=== PATIENT | male | born 1975 | race Two or more races ===

== ENCOUNTER 2018-04-23 02:07 | Emergency (ER) | payer BC, OTHER ==
[~2018-04-23] VITALS: Ht 172.7 cm; Wt 87.5 kg
[~2018-04-23 02:07] MED LIST: ANAS1TAB PO; FEXO60TA25 PO; HYDR-2758 PO; LEVO750T31 PO; LISI-338 PO; METF500T16 PO; OMEG300C PO; PANT40TA3 PO; SIMV5TAB5 PO; SUCR1TAB PO; TEST200V3 IM; TEST5GEL TP; lisinopril; metformin
[2018-04-23 02:47] LABS: BASO % 0 % (0-3); EOS # 0.1 x10^3/uL (0.0-0.7); EOS % 1 % (0-3); HEMOGLOBIN 16.4 g/dL (13.0-17.5); LYMPH # 2.4 x10^3/uL (1.0-4.8); LYMPH % 21 % (24-48); MEAN CORPUSCULAR HEMOGLOBIN 27 pg (25-35); MEAN CORPUSCULAR HGB CONC 33 g/dL (31-37); MEAN CORPUSCULAR VOLUME 83 fL (79-100); MONO # 0.8 x10^3/uL (0.0-1.1); MONO % 7 % (0-9); NEUT # 7.8 x10^3uL (1.8-7.7); NEUT % 70 % (31-73); PLATELET COUNT 306 x10^3/uL (140-400); RED BLOOD COUNT 5.99 x10^6/uL (4.30-5.70); RED CELL DISTRIBUTION WIDTH 14.6 % (11.5-14.5); WHITE BLOOD COUNT 11.2 x10^3/uL (4.0-11.0)
[2018-04-23 03:02] LABS: ALBUMIN 3.9 g/dL (3.4-5.0); ALBUMIN/GLOBULIN RATIO 1.1 (1.0-1.7); CREATININE 1.2 mg/dL (0.7-1.3); GFR 66.4; MAGNESIUM 1.9 mg/dL (1.8-2.4); POTASSIUM 3.9 mmol/L (3.5-5.1); TOTAL BILIRUBIN 0.4 mg/dL (0.2-1.0); TOTAL PROTEIN 7.6 g/dL (6.4-8.2)
[2018-04-23] MEDS: IOHEXOL 300 MG/ML 75 ML VIAL. IV ONE (03:22)
[2018-04-23] MEDS ORDERED: CONTRAST GIVEN MC PRN (03:30)
[2018-04-23 03:46] VITALS: BP 146/81
--- NOTE | 2018-04-23 03:59 | RAD ---
INDICATION: Omni 300 75cc: PE protocol: Chest pain, short of air, elevated d-dimer, left achilles tendon repair 04/19/18 COMPARISON: Chest x-ray August 03, 2015 TECHNIQUE: Axial CT images obtained through the chest. Intravenous contrast utilized. Angiogram 3D images processed per protocol. One or more of the following individualized dose reduction techniques were utilized for this examination: 1. Automated exposure control; 2. Adjustment of the mA and/or kV according to patient size; 3. Use of iterative reconstruction technique. FINDINGS: No evidence of pneumothorax. Hypoexpansion of the lungs with mild groundglass opacities. Linear opacity bilateral lung could be from atelectasis. Small right pleural effusion. Partially visualized liver is low-attenuation. Could be from phase of contrast or fatty infiltration. The pretracheal region on the right there is a 34 x 16 mm oval structure seen. Portions of ascending thoracic aorta obscured by motion but no aneurysm is seen in visualized portions. Fluid in pericardial recess. No embolus in main, right main or left main pulmonary artery. IMPRESSION: No embolus in the central pulmonary arteries but limited peripherally secondary to motion. Hypoexpanded lungs with mild groundglass opacities. Could be from hypoventilatory changes but mild edema or airway inflammation is possible given this finding. Trace right greater than left pleural effusion. Within the mediastinum there is some oval-shaped low-density structure seen including within the pretracheal region. This could be either some loculated fluid within the area or a low density enlarged lymph node. Follow-up could be obtained in a few months to ensure no increase in this finding. Electronically signed by: Ion Barfield MD (04/23/2018 3:56 AM) [facility] [place]
[2018-04-23] MEDS ORDERED: AZIT250T PO (04:14)
--- NOTE | 2018-04-23 04:15 | PHYS DOC ---
Past History Past Medical History: GERD, High Cholesterol, Hypertension, Other Past Surgical History: Other Alcohol Use: Rarely Drug Use: None Adult General Chief Complaint Chief Complaint: CHEST PAIN HPI HPI Patient is a 42-year-old male who presents with complaint of mild chest discomfort he describes as pressure as well as some shortness of breath that started yesterday. Patient states that this evening symptoms have gotten a little bit worse and due to having surgery on his left Achilles tendon, he was concerned about the possibility of a blood clot. Patient does indicate that he takes an adult aspirin that he started yesterday. He also indicates that he has had a bit of a cough but has been nonproductive. He denies any fever. Patient states his symptoms are present even at rest. Review of Systems Review of Systems Constitutional: Denies fever or chills [] Respiratory: Complains of cough and shortness of breath [] Cardiovascular: Complains of chest pressure [] GI: Denies abdominal pain, nausea, vomiting or diarrhea [] Musculoskeletal: Denies back pain [] All other systems were reviewed and found to be within normal limits, except as documented in this note. Current Medications Current Medications Current Medications Medications (Trade) Dose Ordered Sig/Rosa Start Time Stop Time Status Last Admin Dose Admin Info (Do NOT chart on this entry -- for MONITORING) 1 each PRN DAILY PRN 04/23/18 03:30 04/25/18 03:29 Iohexol (Omnipaque 300 Mg/ml) 75 ml 1X ONCE 04/23/18 03:30 04/23/18 03:31 DC 04/23/18 03:22 75 ML Allergies Allergies Allergies Coded Allergies Type Severity Reaction Last Updated Verified No Known Drug Allergies 07/18/14 No Physical Exam Physical Exam Constitutional: Well developed, well nourished, no acute distress, non-toxic appearance. [] HENT: Normocephalic, atraumatic, bilateral external ears normal, oropharynx moist, no oral exudates, nose normal. [] Eyes: PERRLA, EOMI, conjunctiva normal, no discharge. [] Neck: Normal range of motion, no tenderness, supple, no stridor. [] Cardiovascular:Heart rate regular rhythm [] Lungs & Thorax: Bilateral breath sounds clear to auscultation [] Abdomen: Bowel sounds normal, soft. [] Skin: Warm, dry, no erythema, no rash. [] Extremities: No tenderness, no cyanosis, no clubbing, ROM intact. [] Neurologic: Alert and oriented X 3, normal motor function, normal sensory function, no focal deficits noted. [] Current Patient Data Vital Signs Vital Signs Date Time Temp Pulse Resp B/P (MAP) Pulse Ox O2 Delivery O2 Flow Rate FiO2 04/23/18 03:16 67 19 134/82 (99) 92 Room Air 04/23/18 02:13 98.6 Lab Results Laboratory Tests Test 04/23/18 02:20 White Blood Count 11.2 x10^3/uL (4.0-11.0) H Red Blood Count 5.99 x10^6/uL (4.30-5.70) H Hemoglobin 16.4 g/dL (13.0-17.5) Hematocrit 50.0 % (39.0-53.0) Mean Corpuscular Volume 83 fL (79-100) Mean Corpuscular Hemoglobin 27 pg (25-35) Mean Corpuscular Hemoglobin Concent 33 g/dL (31-37) Red Cell Distribution Width 14.6 % (11.5-14.5) H Platelet Count 306 x10^3/uL (140-400) Neutrophils (%) (Auto) 70 % (31-73) Lymphocytes (%) (Auto) 21 % (24-48) L Monocytes (%) (Auto) 7 % (0-9) Eosinophils (%) (Auto) 1 % (0-3) Basophils (%) (Auto) 0 % (0-3) Neutrophils # (Auto) 7.8 x10^3uL (1.8-7.7) H Lymphocytes # (Auto) 2.4 x10^3/uL (1.0-4.8) Monocytes # (Auto) 0.8 x10^3/uL (0.0-1.1) Eosinophils # (Auto) 0.1 x10^3/uL (0.0-0.7) Basophils # (Auto) 0.0 x10^3/uL (0.0-0.2) D-Dimer (Sima) 0.52 mg/L (0.00-0.50) H Sodium Level 137 mmol/L (136-145) Potassium Level 3.9 mmol/L (3.5-5.1) Chloride Level 98 mmol/L (98-107) Carbon Dioxide Level 30 mmol/L (21-32) Anion Gap 9 (6-14) Blood Urea Nitrogen 12 mg/dL (8-26) Creatinine 1.2 mg/dL (0.7-1.3) Estimated GFR (Cockcroft-Gault) 66.4 BUN/Creatinine Ratio 10 (6-20) Glucose Level 100 mg/dL (70-99) H Calcium Level 9.0 mg/dL (8.5-10.1) Magnesium Level 1.9 mg/dL (1.8-2.4) Total Bilirubin 0.4 mg/dL (0.2-1.0) Aspartate Amino Transferase (AST) 24 U/L (15-37) Alanine Aminotransferase (ALT) 35 U/L (16-63) Alkaline Phosphatase 109 U/L (46-116) Troponin I Quantitative < 0.017 ng/mL (0-0.055) AM-Lgd-J-Type Natriuretic Peptide 46 pg/mL (0-124) Total Protein 7.6 g/dL (6.4-8.2) Albumin 3.9 g/dL (3.4-5.0) Albumin/Globulin Ratio 1.1 (1.0-1.7) EKG EKG EKG demonstrates normal sinus rhythm with rate of 75.[] Radiology/Procedures Radiology/Procedures [] Impressions: PROCEDURE: CT ANGIOGRAPHY CHEST INDICATION: Omni 300 75cc: PE protocol: Chest pain, short of air, elevated d-dimer, left achilles tendon repair 04/19/18 COMPARISON: Chest x-ray August 03, 2015 TECHNIQUE: Axial CT images obtained through the chest. Intravenous contrast utilized. Angiogram 3D images processed per protocol. One or more of the following individualized dose reduction techniques were utilized for this examination: 1. Automated exposure control; 2. Adjustment of the mA and/or kV according to patient size; 3. Use of iterative reconstruction technique. FINDINGS: No evidence of pneumothorax. Hypoexpansion of the lungs with mild groundglass opacities. Linear opacity bilateral lung could be from atelectasis. Small right pleural effusion. Partially visualized liver is low-attenuation. Could be from phase of contrast or fatty infiltration. The pretracheal region on the right there is a 34 x 16 mm oval structure seen. Portions of ascending thoracic aorta obscured by motion but no aneurysm is seen in visualized portions. Fluid in pericardial recess. No embolus in main, right main or left main pulmonary artery. IMPRESSION: No embolus in the central pulmonary arteries but limited peripherally secondary to motion. Hypoexpanded lungs with mild groundglass opacities. Could be from hypoventilatory changes but mild edema or airway inflammation is possible given this finding. Trace right greater than left pleural effusion. Within the mediastinum there is some oval-shaped low-density structure seen including within the pretracheal region. This could be either some loculated fluid within the area or a low density enlarged lymph node. Follow-up could be obtained in a few months to ensure no increase in this finding. Electronically signed by: Ion Barfield MD (04/23/2018 3:56 AM) [facility] Course & Med Decision Making Course & Med Decision Making Pertinent Labs and Imaging studies reviewed. (See chart for details) [] Dragon Disclaimer Dragon Disclaimer This electronic medical record was generated, in whole or in part, using a voice recognition dictation system. Departure Departure: Impression: Primary Impression: Atypical chest pain Additional Impression: Bronchitis Disposition: 01 HOME, SELF-CARE Condition: STABLE Referrals: TERRY CARRILLO MD (PCP) Patient Instructions: Bronchitis, Chest Pain (Nonspecific) Scripts Azithromycin (ZITHROMAX) 250 Mg Tablet 1 PKG PO UD for infection, #6 TAB Prov: ELSY ORTIZ Jr. DO 04/23/18 Problem Qualifiers ELSY ORTIZ Jr. DO Apr 23, 2018 04:15
--- NOTE | 2018-04-23 06:32 | EKG ---
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
== END 2018-04-23 04:19 | disposition home or self-care (01) ==
LOC: ER 02:07
DX: J40 Bronchitis, not specified as acute or chronic (principal); R07.89 Other chest pain; K21.9 Gastro-esophageal reflux disease without esophagitis; E78.00 Pure hypercholesterolemia, unspecified; I10 Essential (primary) hypertension
CPT/HCPCS: 36415; 71275; 80053; 83735; 83880; 84484; 85025; 85379; 93005; 99285; Q9967

== ENCOUNTER → 2018-05-26 | Outpatient (CLI) | payer BC ==
[~2018-05-26] MED LIST changes: +AZIT250T PO; +HYDR-2155 PO; -HYDR-2758 PO
[2018-05-26] MEDS: IOHEXOL 300 MG/ML 75 ML VIAL. IV ONE (08:07)
--- NOTE | 2018-05-26 08:32 | RAD ---
PQRS Compliance Statement: One or more of the following individualized dose reduction techniques were utilized for this examination: 1. Automated exposure control 2. Adjustment of the mA and/or kV according to patient size 3. Use of iterative reconstruction technique CT chest with contrast May 26, 2018 INDICATION: Lung nodule versus oval-shaped density COMPARISON: CT chest April 13, 2018 TECHNIQUE: Multiple axial CT images of the chest were obtained after the intravenous demonstration of 75 cc Omnipaque 300. Coronal and sagittal reformats are provided. FINDINGS: The thyroid gland is normal in appearance. In the pretracheal space is fluid attenuation compatible with a superior pericardiac recess. There is no pericardial effusion. Thoracic aorta is normal in caliber. There are no pathologically enlarged axillary, mediastinal or hilar lymph nodes. Heart size within normal limits. Interval resolution of small bilateral pleural effusions. There is improved aeration of the lungs. No residual pulmonary infiltrate. No suspicious solid noncalcified pulmonary nodules. No pulmonary vascular congestion or pneumothorax. Low attenuation the hepatic parenchyma suggestive of hepatic steatosis. No suspicious hepatic lesions are identified. Visualized portions of pancreas appear normal. Adrenal glands are normal in appearance. No suspicious osseous abnormality is identified. IMPRESSION: 1. Pretracheal fluid attenuation lesion is most favored represent a superior pericardial recess. 2. Interval resolution of trace bilateral pleural effusions and bilateral airspace disease. Electronically signed by: Chiara Devlin MD (05/26/2018 8:29 AM) [id number]
== END | disposition home or self-care (01) ==
LOC: CT 07:44
PROVIDERS: ATTEND Family Medicine
DX: J98.4 Other disorders of lung (principal)
CPT/HCPCS: 71260; Q9967

== ENCOUNTER 2019-05-21 20:38 | Emergency (ER) | payer BC ==
[~2019-05-21] VITALS: Ht 172.7 cm; Wt 96.2 kg
[~2019-05-21 20:38] MED LIST changes: +SIMV5TAB14 PO; -SIMV5TAB5 PO
--- NOTE | 2019-05-21 20:54 | PHYS DOC ---
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 of chest radiates to left arm constant \mild to moderate noted bp elevated had a red bull earlier had some palpitations a/w the sypmtoms red bull is very unusual for him last time had cp was after using hydrocodone for an achilles tendon repari last year pos htn on meds hld no dm non smoker Review of Systems Review of Systems Constitutional: Denies fever or chills [] Eyes: Denies change in visual acuity, redness, or eye pain [] no sob not pleuritic pain Cardiovascular: No additional information not addressed in HPI [] GI: Denies abdominal pain, nausea, vomiting, bloody stools or diarrhea [] : Denies dysuria or hematuria [] Musculoskeletal: Denies back pain or joint pain [] Integument: Denies rash or skin lesions [] Neurologic: Denies headache, focal weakness or sensory changes [] Endocrine: Denies polyuria or polydipsia [] All other systems were reviewed and found to be within normal limits, except as documented in this note. Allergies Allergies Allergies Coded Allergies Type Severity Reaction Last Updated Verified No Known Drug Allergies 04/23/18 No Physical Exam Physical Exam Constitutional: Well developed, well nourished, no acute distress, non-toxic appearance. [] HENT: Normocephalic, atraumatic, bilateral external ears normal, oropharynx moist, no oral exudates, nose normal. [] Eyes: PERRLA, EOMI, conjunctiva normal, no discharge. [] Neck: Normal range of motion, no tenderness, supple, no stridor. [] Cardiovascular:Heart rate regular rhythm, no murmur [] Lungs & Thorax: Bilateral breath sounds clear to auscultation [] Abdomen: Bowel sounds normal, soft, no tenderness, no masses, no pulsatile masses. [] Skin: Warm, dry, no erythema, no rash. [] Back: No tenderness, no CVA tenderness. [] Extremities: No tenderness, no cyanosis, no clubbing, ROM intact, no edema. [] Neurologic: Alert and oriented X 3, normal motor function, normal sensory function, no focal deficits noted. [] Psychologic: Affect normal, judgement normal, mood normal. [] Current Patient Data Vital Signs None Temperature (Fahrenheit): * 97.9 degrees F (97.6-99.5) Patient Temperature * 97.9 degrees F (97.5-99.5) Temperature Source * Oral Blood Pressure Systolic * 162 mm Hg (100-140) H Blood Pressure Diastolic * 117 mm Hg (60-100) H Blood Pressure Mean * 132 mm Hg Blood Pressure Location * Left Arm Blood Pressure Source * Automatic Cuff Pulse Rate * 87 beats per minute (60-90) Pulse Assessment Method * Monitor Respiratory Rate * 16 breaths per minute (12-24) Oxygen Delivery Method * Room Air Bedside Pulse Oximetry * 98 % EKG EKG []nsr rate 74 no acute ischemia or stemi qtc 433 Radiology/Procedures Radiology/Procedures [] Impressions: cxr neg by my read final readi pendign Course & Med Decision Making Course & Med Decision Making Pertinent Labs and Imaging studies reviewed. (See chart for details) []heart score is h 1 e 0 a 0 r 1 t 0 appropriate for outpatient mgmt ddimer negative does not soiund like pe or dissection pain resolved after observation in the er bp down to 124 with observation only. pain resolved advised pmd f/u this week for consideration of stress testing Dragon Disclaimer Dragon Disclaimer This electronic medical record was generated, in whole or in part, using a voice recognition dictation system. Departure Departure: Impression: Primary Impression: Chest pain Disposition: HOME, SELF-CARE Condition: STABLE Referrals: TERRY CARRILLO MD (PCP) ROGE THOMAS MD May 21, 2019 20:54
--- NOTE | 2019-05-21 21:13 | EKG ---
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
[2019-05-21 21:15] LABS: BASO % 1 % (0-3); EOS # 0.2 x10^3/uL (0.0-0.7); EOS % 2 % (0-3); HEMATOCRIT 47.7 % (39.0-53.0); HEMOGLOBIN 15.8 g/dL (13.0-17.5); LYMPH # 2.9 x10^3/uL (1.0-4.8); LYMPH % 41 % (24-48); MEAN CORPUSCULAR HEMOGLOBIN 29 pg (25-35); MEAN CORPUSCULAR HGB CONC 33 g/dL (31-37); MEAN CORPUSCULAR VOLUME 86 fL (79-100); MONO # 0.6 x10^3/uL (0.0-1.1); MONO % 9 % (0-9); NEUT # 3.3 x10^3uL (1.8-7.7); NEUT % 47 % (31-73); PLATELET COUNT 244 x10^3/uL (140-400); RED BLOOD COUNT 5.53 x10^6/uL (4.30-5.70)
[2019-05-21] MEDS ORDERED: ASPIRIN 81 MG TAB.CHEW PO ONE (21:30)
[2019-05-21] MEDS ORDERED: NITROGLYCERIN SUBLINGUAL 0.4 MG BOTTLE OF 25. SL ONE (21:30)
[2019-05-21 21:36] LABS: ALBUMIN 3.7 g/dL (3.4-5.0); ALBUMIN/GLOBULIN RATIO 1.1 (1.0-1.7); CALCIUM 8.8 mg/dL (8.5-10.1); CREATININE 1.1 mg/dL (0.7-1.3); GFR 73.1; POTASSIUM 3.6 mmol/L (3.5-5.1); TOTAL BILIRUBIN 0.5 mg/dL (0.2-1.0); TOTAL PROTEIN 7.2 g/dL (6.4-8.2)
[2019-05-21 23:43] VITALS: BP 122/87
--- NOTE | 2019-05-22 00:20 | RAD ---
CHEST AP ONLY History: Left arm pain for a few hours, chest pain Comparison: 08/03/2015 Findings: Single view of the chest is submitted. There is no infiltrate, pneumothorax, or effusion. The pericardial cardiac silhouette is within normal limits in size. Impression: 1. There is no radiographic evidence of acute cardiopulmonary disease. Electronically signed by: Luis Miguel Salmon MD (05/22/2019 12:17 AM) [facility]
== END 2019-05-21 23:55 | disposition home or self-care (01) ==
LOC: ER 20:38
DX: R07.89 Other chest pain (principal); K21.9 Gastro-esophageal reflux disease without esophagitis; E78.00 Pure hypercholesterolemia, unspecified; I10 Essential (primary) hypertension
CPT/HCPCS: 36415; 71045; 80053; 83880; 84484; 85025; 85379; 85610; 93005; 99285